=== PATIENT | female | born 1940 | race Caucasian/White ===

== ENCOUNTER 2017-03-18 18:36 | Emergency (ER) | payer MEDICARE, OTHER ==
[~2017-03-18] VITALS: Ht 160 cm; Wt 60.8 kg
[~2017-03-18 18:36] MED LIST: ASPIR 8181 MG PO; CIPRO250 MG PO; CIPRO500 MG PO; DICLOFENAC SOD75 M1 PO; DIT5 PO; GLU500 PO; LAC PO; MINOCYCLINE HC100 MG PO; NITROFURANTOIN PO; NOR10 PO; PRA10 PO; PYR100 PO; V2 PO; VITAMIN D32000 I2 PO; ZYR10 PO
[2017-03-18 21:18] VITALS: BP 154/90
== END 2017-03-18 21:23 | disposition home or self-care (01) ==
LOC: ED 18:36
DX: M25.561 Pain in right knee (principal); I10 Essential (primary) hypertension; E11.9 Type 2 diabetes mellitus without complications; E78.00 Pure hypercholesterolemia, unspecified; F03.90 Unspecified dementia, unspecified severity, without behavioral disturbance, psychotic disturbance, mood disturbance, and anxiety
CPT/HCPCS: J1885; J2270; Q0092

== ENCOUNTER 2018-06-02 09:39 | Emergency (ER) | payer MEDICARE, OTHER ==
[~2018-06-02] VITALS: Ht 63.5 cm; Wt 64.4 kg
[2018-06-02 09:41] VITALS: Ht 63.5 cm; Wt 64.4 kg
[2018-06-02 10:15] LABS: PLATELET COUNT 294 x10^3mcL (130-400); RED CELL DISTRIBUTION WIDTH 13.7 % (11.5-14.5)
[2018-06-02 10:27] LABS: CALCIUM 8.7 mg/dL (8.5-10.1); CARBON DIOXIDE 28.6 mmol/L (21-32); CHLORIDE SERUM 107 mmol/L (98-107); CREATININE SERUM 0.9 mg/dL (0.6-1.0); GLUCOSE SERUM 128 mg/dL (74-106); POTASSIUM SERUM 4.6 mmol/L (3.5-5.1); SODIUM SERUM 145 mmol/L (136-145)
[2018-06-02 10:32] LABS: ALKALINE PHOSPHATASE 67 U/L (46-116); ALT/SGPT 24 U/L (14-59); AST/SGOT 13 U/L (15-37); TOTAL PROTEIN, SERUM 7.6 g/dL (6.4-8.2)
[2018-06-02 10:34] LABS: ALBUMIN 3.3 g/dL (3.4-5.0)
[2018-06-02 12:10] VITALS: BP 129/75
== END 2018-06-02 12:10 | disposition home or self-care (01) ==
LOC: ED 09:39
PROVIDERS: Emergency Medicine
DX: G44.209 Tension-type headache, unspecified, not intractable (principal); S70.02XA Contusion of left hip, initial encounter; F41.9 Anxiety disorder, unspecified; I10 Essential (primary) hypertension; E11.9 Type 2 diabetes mellitus without complications; E78.00 Pure hypercholesterolemia, unspecified; W18.39XA Other fall on same level, initial encounter; Y93.89 Activity, other specified; Y92.89 Other specified places as the place of occurrence of the external cause; Y99.8 Other external cause status
CPT/HCPCS: 36415

== ENCOUNTER 2019-04-17 17:12 | Emergency (ER) | payer MEDICARE, OTHER ==
[~2019-04-17] VITALS: Ht 157.5 cm; Wt 68.0 kg
[2019-04-17 17:12] VITALS: Ht 157.5 cm; Wt 68.0 kg
[2019-04-17 18:36] VITALS: BP 139/74
== END 2019-04-17 19:37 | disposition home or self-care (01) ==
LOC: ED 17:12
DX: S83.92XA Sprain of unspecified site of left knee, initial encounter (principal); I10 Essential (primary) hypertension; E11.9 Type 2 diabetes mellitus without complications; E78.00 Pure hypercholesterolemia, unspecified; Z98.890 Other specified postprocedural states; W18.39XA Other fall on same level, initial encounter; Y93.89 Activity, other specified; Y92.830 Public park as the place of occurrence of the external cause; Y99.8 Other external cause status
CPT/HCPCS: Q0092

== ENCOUNTER 2019-06-25 17:44 | Emergency (ER) | payer MEDICARE, OTHER ==
[~2019-06-25] VITALS: Ht 152.4 cm; Wt 72.6 kg
[2019-06-25 17:47] VITALS: Ht 152.4 cm; Wt 72.6 kg
[2019-06-25 18:19] LABS: BASOPHIL % 0.7 % (0-2); PLATELET COUNT 327 x10^3mcL (130-400); RED CELL DISTRIBUTION WIDTH 14.1 % (11.5-14.5)
[2019-06-25 18:23] LABS: CARBON DIOXIDE 26.5 mmol/L (21-32); CHLORIDE SERUM 103 mmol/L (98-107); CREATININE SERUM 0.9 mg/dL (0.6-1.0); GLUCOSE SERUM 145 mg/dL (74-106); POTASSIUM SERUM 3.9 mmol/L (3.5-5.1); SODIUM SERUM 140 mmol/L (136-145)
[2019-06-25 18:29] LABS: ALKALINE PHOSPHATASE 69 U/L (46-116); ALT/SGPT 25 U/L (14-59); AST/SGOT 14 U/L (15-37); BILIRUBIN TOTAL 0.2 mg/dL (0.20-1.00); LIPASE 210 IU/L (73-393); TOTAL PROTEIN, SERUM 7.7 g/dL (6.4-8.2)
[2019-06-25 18:30] LABS: ALBUMIN 3.3 g/dL (3.4-5.0)
[2019-06-25 19:35] VITALS: BP 155/81
[2019-06-25 19:36] LABS: UA SPECIFIC GRAVITY 1.015 (1.005-1.035); microscopic required? YES; urine erythrocyte NEGATIVE (NEGATIVE)
== END 2019-06-25 20:32 | disposition home or self-care (01) ==
LOC: ED 17:44
PROVIDERS: Emergency Medicine
DX: R25.1 Tremor, unspecified (principal); R41.82 Altered mental status, unspecified; I10 Essential (primary) hypertension; E11.9 Type 2 diabetes mellitus without complications; E78.00 Pure hypercholesterolemia, unspecified; M79.603 Pain in arm, unspecified
CPT/HCPCS: 36415; G0480; J1630; Q0092